=== PATIENT | male | born 1945 | race Caucasian/White ===

== ENCOUNTER 2017-10-23 13:43 | Emergency (ER) | payer MEDICARE, OTHER ==
[2012-04-29 07:14] VITALS: BMI 22.8
[2017-10-23 14:12] LABS: BASOPHILS 1.7 % (0-2); EOSINOPHILS 6.3 % (0-7); HEMATOCRIT 35.7 % (42.0-54.0); HEMOGLOBIN 12.4 g/dL (13.5-17.5); IMMATURE GRANULOCYTES 0.4 % (0-5); LYMPHOCYTES 40.5 % (15-50); MCH 33.7 pg (26.0-34.0); MCHC 34.7 g/dL (31.0-37.0); NEUTROPHILS 47.1 % (40-80); PLATELET COUNT 259 10x3/uL (130-400); RBC 3.68 10x6/uL (4.20-6.10); RDW 12.2 % (11.5-14.5); WBC 7.7 10x3/uL (4.8-10.8)
[2017-10-23 14:32] LABS: ALBUMIN 3.5 g/dL (3.4-5.0); ANION GAP 15.8 mmol/L (8-16); BILIRUBIN - TOTAL 0.3 mg/dL (0.2-1.3); CALCIUM 8.8 mg/dL (8.5-10.1); CARBON DIOXIDE 22.4 mmol/L (21.0-32.0); CREATININE - SERUM 1.6 mg/dL (0.6-1.3); POTASSIUM - SERUM 4.2 mmol/L (3.5-5.1); PROTEIN - SERUM 7.3 g/dL (6.4-8.2)
[2017-10-23 14:53] LABS: INR 0.96 (0.85-1.17); PROTIME 12.4 SECONDS (11.6-15.0)
[2017-10-23 14:54] LABS: APTT 26.3 SECONDS (22.8-39.4)
[2017-10-23 14:55] LABS: D-DIMER-QUANTITATIVE 1.3 ug/mLFEU (0.20-0.54)
[2017-10-23 15:07] LABS: CKMB 0.4 U/L (0.0-3.6); CREATINE KINASE 78 UL (21-232); TROPONIN-I < 0.017 ng/mL (0.000-0.060)
[2017-10-23 15:30] LABS: APPEARANCE CLEAR (CLEAR); BILIRUBIN NEGATIVE (NEGATIVE); COLOR YELLOW (YELLOW); GLUCOSE NEGATIVE (NEGATIVE); KETONE NEGATIVE (NEGATIVE); NITRITE NEGATIVE (NEGATIVE); PROTEIN NEGATIVE (NEGATIVE); UROBILINOGEN NORMAL (NORMAL)
== END 2017-10-23 20:14 | disposition home or self-care (01) ==
LOC: D.ER 13:43
PROVIDERS: Family Medicine
DX: R41.82 Altered mental status, unspecified (principal); I10 Essential (primary) hypertension; K21.9 Gastro-esophageal reflux disease without esophagitis

== ENCOUNTER → 2017-11-19 07:58 | Outpatient (CLI) | payer MEDICARE, OTHER ==
[2012-04-29 07:14] VITALS: BMI 22.8
== END | disposition home or self-care (01) ==
LOC: D.CT 07:58
DX: I31.3 Pericardial effusion (noninflammatory) (principal)